=== PATIENT | female | born 1950 | race Caucasian/White ===

== ENCOUNTER 2018-07-31 00:30 | Outpatient (CLI) | payer MEDICARE, BC, SELFPAY ==
--- NOTE | 2018-07-31 09:00 | DI.MAMMO_ITS ---
SYMPTOMS/DIAGNOSIS: SCREENING, Z12.31 BILATERAL SCREENING MAMMOGRAM: Mammograms were interpreted according to the usual protocol including computer analysis with CAD system, tomosynthesis and C view imaging. Comparison is made with exams from 2013 through 2017. The breasts are composed of heterogeneously dense fibroglandular tissue, breast density category C. No suspicious masses or suspicious microcalcifications are seen. There has been no significant change. IMPRESSION: Category 1C, negative mammogram. Yearly screening mammography is recommended. [facility] ASSESSMENT OF FINDINGS: Negative. Category 1. Patient will receive a letter notifying them of these results. Bi-RADS category C. The breasts are heterogeneously dense, which may obscure small masses.
== END 2018-07-31 00:50 ==
PROVIDERS: PCP Internal Medicine; Visit Provider Nurse Practitioner Family
DX: Z12.31 Encounter for screening mammogram for malignant neoplasm of breast (principal)
CPT/HCPCS: 77063; 77067

== ENCOUNTER 2018-12-15 13:44 | Outpatient (REF) | payer MEDICARE, BC, SELFPAY | END 2018-12-15 14:04 | LOC: LBN 13:44 | PROVIDERS: PCP Internal Medicine; Visit Provider Nurse Practitioner Family | DX: M54.9 Dorsalgia, unspecified (principal) | CPT/HCPCS: 87086 ==

== ENCOUNTER 2019-04-06 02:01 | Outpatient (CLI) | payer MEDICARE, BC, SELFPAY ==
[2019-04-06 11:21] LABS: Calculated LDL 137 mg/dL; Cholesterol 232 mg/dL (50-200); HDL Cholesterol 86 mg/dL (40-60); Triglyceride 45 mg/dL (30-150)
== END 2019-04-06 02:21 ==
PROVIDERS: PCP Internal Medicine; Visit Provider Naturopath
DX: E78.00 Pure hypercholesterolemia, unspecified (principal)
CPT/HCPCS: 36415; 80061; 83721

== ENCOUNTER 2019-07-23 09:30 | Outpatient (REF) | payer MEDICARE, BC, SELFPAY ==
--- NOTE | 2019-07-23 09:00 | PAPFT_PTH ---
PATIENT: Isabell Carballo LOC: [facility] U#:[id number] AGE/SX: 68/F ROOM: RE07/23/[address]: TONI Piedra : 1950 BED: DIS: 07/23/2019 SPEC #: [id number] RECD: 07/23/19 12:52 STATUS: ED RETito #: [id number] SONY: 07/23/19 09:[address]: Jana Bass DEPT: [facility] Cytology RECD BY: Ivanna Frost ENTERED: 07/23/19 12:53 SP TYPE: PAPFT OTHR DR: Stan Greer Tissues: 1 - CX/ENDOCX FOR PAP SMEARS Procedures: PAP THIN PREP/[facility] Screening Comments: [id number]
== END 2019-07-23 09:50 ==
LOC: LBN 09:30
PROVIDERS: PCP Internal Medicine; Visit Provider Nurse Practitioner Family
DX: Z12.4 Encounter for screening for malignant neoplasm of cervix (principal)
CPT/HCPCS: 88142

== ENCOUNTER 2019-09-10 00:53 | Outpatient (CLI) | payer MEDICARE, BC, SELFPAY ==
--- NOTE | 2019-09-10 10:41 | DI.MAMMO_ITS ---
EXAM: MG MAMMO SCREENING CLINICAL HISTORY: Screening, Z12.39 TECHNIQUE: Bilateral full field digital CC and MLO mammographic images were obtained with 3D tomosyn thesis and utilizing computer aided detection (CAD). COMPARISON: Available for comparison. FINDINGS: Masses/Architectural Distortion: None seen. Microcalcifications: No suspicious pleomorphic-type are seen. Skin Thickening/Nipple Retraction: None. IMPRESSION: 1. No significant interval change with no specific features of malignancy noted. 2. Unless there is more urgent need, screening mammography is recommended, as per [employer] guidelines. ACR BI-RAD Category- 1 Negative Breast Density - Category C - Heterogeneously dense The mammogram demonstrates the patient's breast tissue is dense. Dense breast tissue is very common a nd is not abnormal but dense breast tissue can make it harder to find cancer on a mammogram. Also, de nse breast tissue may increase their breast cancer risk. This information about the result of the [facility] mogram report was provided to the patient to raise their awareness. Use this report when you speak wi th the patient about their risks for breast cancer, which includes their family history. At that time , you may recommend for more screening tests (Ultrasound or MRI) as they might be useful based on the ir risk. A negative radiographic report should not delay biopsy if a dominant or clinically suspicious mass is present. Up to ten percent of cancers are not identified on mammography. A negative report may reinforce clinical impression. Adenosis and dense breasts may obscure an underlying neoplasm. False positive reports average 6 to 10%. Patient will receive a letter notifying them of these results.
== END 2019-09-10 01:13 ==
PROVIDERS: PCP Internal Medicine; Visit Provider Nurse Practitioner Family
DX: Z12.31 Encounter for screening mammogram for malignant neoplasm of breast (principal)
CPT/HCPCS: 77063; 77067

== ENCOUNTER 2020-05-20 10:01 | Outpatient (CLI) | payer MEDICARE, BC, SELFPAY ==
[2020-05-22 05:06] LABS: SARS-CoV-2 RNA Undetected (Undetected); SARS-CoV-2 Specimen Source Nasopharynx
== END 2020-05-20 10:21 ==
PROVIDERS: Nurse Practitioner Family; PCP Internal Medicine; Visit Provider Internal Medicine
DX: Z11.59 Encounter for screening for other viral diseases (principal)
CPT/HCPCS: U0003

== ENCOUNTER 2020-09-18 03:24 | Outpatient (CLI) | payer MEDICARE, BC, SELFPAY ==
--- NOTE | 2020-09-18 10:00 | DI.MAMMO_ITS ---
EXAM: MG MAMMO SCREENING CLINICAL HISTORY: screening. TECHNIQUE: Bilateral full field digital CC and MLO mammographic images were obtained with 3D tomosyn thesis and utilizing computer aided detection (CAD). COMPARISON: Prior mammograms dating back to 2010, the most recent being September 2019. Significant family history. Her mother of metastatic breast cancer at age 39. FINDINGS: Fibroglandular tissue is moderately dense, this decreasing sensitivity mammogram for finding in under lying lesions. Asymmetric densities evident in both breasts appear unchanged from prior studies. There are no new o bvious spiculated masses. No malignant-appearing microcalcification groups evident. No new architec tural distortion nor skin thickening-traction IMPRESSION: Dense bilateral fibroglandular tissue. No obvious radiographic evidence of malignancy. Given the de nsity of the patient's fibroglandular tissue +significant family history open (mother of metasta tic breast cancer at age 39) I recommend screening bilateral ultrasound. BI-RADS Category 0 - Assessment Incomplete: Need additional imaging evaluation Breast Density - Category C - Heterogeneously dense Breast density Category C or D implies that the patient has dense breast tissue. Dense breast tissue can make it harder to find cancer on a mammogram. Dense breast tissue is also associated with an incr eased risk of breast cancer. This information about the result of the mammogram report was provided to the patient to raise their awareness. Use this report when you speak with the patient about their risks for breast cancer, which includes their family history. At that time, you may recommend additional screening tests (Ultrasoun d or MRI) as these tests may add significant information. A negative radiographic report should not delay biopsy if a dominant or clinically suspicious mass is present. Up to ten percent of cancers are not identified on mammography. A negative report may reinforce clinical impression. Adenosis and dense breasts may obscure an underlying neoplasm. False positive reports average 6 to 10%. Patient will receive a letter notifying them of these results.
== END 2020-09-18 03:44 ==
PROVIDERS: PCP Internal Medicine; Visit Provider Nurse Practitioner Family
DX: Z12.31 Encounter for screening mammogram for malignant neoplasm of breast (principal); Z80.3 Family history of malignant neoplasm of breast
CPT/HCPCS: 77063; 77067

== ENCOUNTER 2020-09-26 04:17 | Outpatient (CLI) | payer MEDICARE, BC, SELFPAY ==
--- NOTE | 2020-09-26 | DI.US_ITS ---
EXAM: US BREAST RT COMPLETE and U/S breast LT complete CLINICAL HISTORY: F/U MAMMO, DENSE BREASTS, STRONG FAMILY H/O BREAST CA TECHNIQUE: Ultrasound right and left breasts were performed using standard protocol. COMPARISON: Comparison with prior mammograms. FINDINGS: All 4 quadrants of both breasts were evaluated sonographically including the axilla and retroareolar areas. No cystic or solid masses are seen sonographically. The axilla and retroareolar regions are unremarkable sonographically. IMPRESSION: No sonographically suspicious finding. Yearly mammography is recommended. The findings were discussed with the patient on the date of the e xamination. BI-RADS Category 1 - Negative DATA REPOSITORY:
== END 2020-09-26 04:37 ==
PROVIDERS: PCP Internal Medicine; Visit Provider Nurse Practitioner Family
DX: R92.8 Other abnormal and inconclusive findings on diagnostic imaging of breast (principal); R92.2 Inconclusive mammogram; Z80.3 Family history of malignant neoplasm of breast
CPT/HCPCS: 76642

== ENCOUNTER 2021-09-23 18:21 | Outpatient (REF) | payer MEDICARE, BC, SELFPAY ==
[2021-09-23 21:27] LABS: Anion Gap 9.1 mmol/L (3-11); BUN 17 mg/dL (7-18); CO2 27.9 mmol/L (21.0-32.0); Calcium 9.3 mg/dL (8.5-10.1); Calculated LDL 148 mg/dL (<100); Chloride 105 mmol/L (98-107); Cholesterol 247 mg/dL (<200); Estimated GFR 54.81 (mL/min/1.73m2); Glucose 93 mg/dL (74-106); HDL Cholesterol 87 mg/dL (40-60); Sodium 142 mmol/L (136-145); TSH 0.48 uIU/mL (0.36-3.74); Triglyceride 62 mg/dL (<150)
== END 2021-09-23 18:22 | disposition home or self-care (01) ==
LOC: NCHCN 18:21
PROVIDERS: PCP Internal Medicine; Visit Provider Internal Medicine
DX: R03.0 Elevated blood-pressure reading, without diagnosis of hypertension (principal); Z00.00 Encounter for general adult medical examination without abnormal findings
CPT/HCPCS: 80048; 80061; 84443

== ENCOUNTER 2021-10-12 00:54 | Outpatient (CLI) | payer MEDICARE, BC, SELFPAY ==
--- NOTE | 2021-10-12 11:30 | DI.MAMMO_ITS ---
Exam(s) MAMMO SCREENING EXAM: MAMMO SCREENING CLINICAL HISTORY: screening TECHNIQUE: Mammograms were interpreted according to the usual protocol including computer analysis w [employer] CAD system, tomosynthesis and C-view imaging. COMPARISON: 2011 through 2019 FINDINGS: The breasts are composed of heterogeneously dense fibroglandular densities, Breast Density category C . No suspicious masses or suspicious microcalcifications are seen. No skin thickening or abnormal axillary lymph nodes are seen. There has been no significant change from prior exams. IMPRESSION: BI-RADS Category 1, Negative mammogram. Yearly screening mammography is recommended. Breast Density Category C, heterogeneously Dense. The mammogram demonstrates the patient's breast tissue is dense. Dense breast tissue is very common a nd is not abnormal but dense breast tissue can make it harder to find cancer on a mammogram. Also, de nse breast tissue may increase breast cancer risk. This information about the result of the mammogram report was provided to the patient to raise their awareness. Use this report when you speak with the patient about their risks for breast cancer, which includes their family history. At that time, you may recommend additional screening tests (Ultrasound or MRI) as they might be useful based on their r isk. A negative radiographic report should not delay biopsy if a dominant or clinically suspicious mass is present. Up to ten percent of cancers are not identified on mammography. A negative report may reinforce clinical impression. Adenosis and dense breasts may obscure an underlying neoplasm. False positive reports average 6 to 10%.
== END 2021-10-12 01:14 ==
PROVIDERS: PCP Internal Medicine; Visit Provider Nurse Practitioner Family
DX: Z12.31 Encounter for screening mammogram for malignant neoplasm of breast (principal)
CPT/HCPCS: 77063; 77067

== ENCOUNTER 2022-10-15 01:11 | Outpatient (CLI) | payer MEDICARE, BC, SELFPAY ==
--- NOTE | 2022-10-15 08:00 | DI.MAMMO_ITS ---
Exam(s) MAMMO SCREENING EXAM: MAMMO SCREENING CLINICAL HISTORY: screening,Z12.39 TECHNIQUE: Mammograms were interpreted according to the usual protocol including computer analysis w [employer] CAD system, tomosynthesis and C-view imaging. COMPARISON: 2012 through 2021 FINDINGS: The breasts are composed of heterogeneously dense fibroglandular densities, Breast Density category C . No suspicious masses or suspicious microcalcifications are seen. No skin thickening or abnormal axillary lymph nodes are seen. There has been no significant change from prior exams. IMPRESSION: BI-RADS Category 1, Negative mammogram. Yearly screening mammography is recommended. Breast Density Category C, heterogeneously Dense. The mammogram demonstrates the patient's breast tissue is dense. Dense breast tissue is very common a nd is not abnormal but dense breast tissue can make it harder to find cancer on a mammogram. Also, de nse breast tissue may increase breast cancer risk. This information about the result of the mammogram report was provided to the patient to raise their awareness. Use this report when you speak with the patient about their risks for breast cancer, which includes their family history. At that time, you may recommend additional screening tests (Ultrasound or MRI) as they might be useful based on their r isk. A negative radiographic report should not delay biopsy if a dominant or clinically suspicious mass is present. Up to ten percent of cancers are not identified on mammography. A negative report may reinforce clinical impression. Adenosis and dense breasts may obscure an underlying neoplasm. False positive reports average 6 to 10%.
== END 2022-10-15 01:31 ==
LOC: DI 01:12
PROVIDERS: PCP Internal Medicine; Visit Provider Nurse Practitioner Women's Health
DX: Z12.31 Encounter for screening mammogram for malignant neoplasm of breast (principal)
CPT/HCPCS: 77063; 77067

== ENCOUNTER 2022-12-30 09:32 | Outpatient (CLI) | payer MEDICARE, BC, SELFPAY ==
--- NOTE | 2022-12-30 08:45 | DI.RAD_ITS ---
Exam(s) XR KNEE RT 3V AP,LAT,DIANA EXAM: XR KNEE RT 3V AP,LAT,DIANA CLINICAL HISTORY: R knee pain. TECHNIQUE: 2D digital imaging was performed of the right knee. Three views obtained. AP, lateral an d PA tunnel views were obtained. COMPARISON: No exams were available for comparison FINDINGS: BONES: No acute fracture is present. No bony destructive lesion is seen. There is an enthesophyte at the superior aspect of the patella anteriorly. JOINTS: The knee is normally aligned. There is a small joint effusion. There is mild narrowing of th e medial femoral tibial joint. Periarticular spurring is seen in the medial femoral tibial and caro lofemoral joint. SOFT TISSUE: Normal. IMPRESSION: Mild degenerative changes of the knee. Small joint effusion. DATA REPOSITORY: RADIATION DOSE DELIVERED:
== END 2022-12-30 09:33 | disposition home or self-care (01) ==
LOC: DIORS 09:32
PROVIDERS: PCP Internal Medicine; Referring Provider Internal Medicine; Visit Provider Physician Assistant
DX: M17.11 Unilateral primary osteoarthritis, right knee; M65.331 Trigger finger, right middle finger
CPT/HCPCS: 73562; 99203

== ENCOUNTER → 2023-02-01 10:50 | Outpatient (BNVA) | payer MEDICARE, BC, SELFPAY | PROVIDERS: PCP Internal Medicine; Referring Provider Internal Medicine; Visit Provider Physician Assistant | DX: M65.331 Trigger finger, right middle finger (principal); M17.11 Unilateral primary osteoarthritis, right knee | CPT/HCPCS: 20550; 20610; J1030; J1040 ==

== ENCOUNTER 2023-11-21 11:45 | Outpatient (REF) | payer MEDICARE, BC, SELFPAY ==
--- OUTSIDE RECORDS SUMMARY | 2023-11-21 11:48 | XMS_ITS | Continuity of Care Document ---
Author Name Unknown Organization [facility] Address [address] [place] [address] Care Team Providers Care Community Engagement Leader Name Role Phone Stan Hsu Primary Care Physician [facility] Date[facility] 09/21/23 - 09/21/[address] [address] Encounter Diagnosis Diverticulosis of large intestine without perforation or abscess without bleeding(Final) - Family history of malignant neoplasm of digestive organs(Final) - Discharge Disposition: Home or Self Care Attending Physician: Barak Meraz MD Admitting Physician: Barak Meraz MD Referring Physician: Barak Meraz MD Allergies, Adverse Reactions, Alerts Substance Reaction Severity Status sulfa drugs Hives Moderate Active Assessment and Plan Future Scheduled Tests Laboratory* Surgical Pathology [facility] 09/21/23 Functional Status 09/21/23 ADLs Independent Recent Travel History No recent travel Medications Glucosamine Chondroitin 0 Refill(s) Start Date: 09/19/23 Status: Ordered multivitamin adult, oral tablet 0 Refill(s) Start Date: 09/19/23 Status: Ordered Turmeric 0 Refill(s) Start Date: 09/21/23 Status: Ordered Vital-D 0 Refill(s) Start Date: 09/19/23 Status: Ordered Procedures Procedure Date Related Diagnosis Body Site Status Colonoscopy 09/11/17 Completed section Complete d Vital Signs Most recent to oldest [Reference Range]: 1 2 3 Temperature Temporal Artery [36-38 Deg C] 35.4 Deg C *LOW* (09/21/23 10:40 AM) 36.8 Deg C (09/21/23 8:38 AM) Temperature Temporal Artery (DegF) [97.3-100 Deg F] 95.72 Deg F *LOW* (09/21/23 10:40 AM) Peripheral Pulse Rate [60-100 bpm] 74 bpm (09/21/23 11:30 AM) 61 bpm (09/21/23 11:15 AM) 57 bpm *LOW* (09/21/23 11:10 AM) Heart Rate Monitored [60-100 bpm] 72 bpm (09/21/23 11:30 AM) 61 bpm (09/21/23 11:15 AM) 57 bpm *LOW* (09/21/23 11:10 AM) Respiratory Rate [12-24 br/min] 20 br/min (09/21/23 11:30 AM) 11 br/min *LOW* (09/21/23 11:15 AM) 18 br/min (09/21/23 11:10 AM) Blood Pressure [90-140/60-90 mmHg] 137/105mmHg (09/21/23 11:30 AM) 128/68mmHg (09/21/23 11:15 AM) 122/67mmHg (09/21/23 11:00 AM) Mean Arterial Pressure, Cuff [70-110 mmHg] 116 mmHg *HI* (09/21/23 11:30 AM) 88 mmHg (09/21/23 11:15 AM) 85 mmHg (09/21/23 11:00 AM) Mean Arterial Pressure Cuff 102 mmHg (09/21/23 8:38 AM) Blood Pressure Location Left arm (09/21/23 8:38 AM) Weight 62.2 kg (09/21/23 8:38 AM) Weight Dosing 62.200 kg (09/21/23 8:38 AM) Height 152 cm (09/21/23 8:38 AM) Body Mass Index 26.92 kg/m2 (09/21/23 8:38 AM) Social History Social History Type Response Tobacco Never tobacco user T obacco Use:. Sex Female Hospital Discharge Instructions Patient Education 09/21/2023 10:06:19 ss colonoscopy discharge instructions COLONOSCOPY / SIGMOIDOSCOPY Home Independently, No polyps were seen. The patient has mild diverticulosis. Repeat exam 5 years., Following day: Return to full activity, including work. Diet: Eat and drink normally, unless instructed otherwise. Treatment for common after affects: Mild abdominal pain, bloating, or excessive gas: Rest, eat lightly and use a heating pad. Symptoms to watch for and report to your physician: SEVERE abdominal pain or bloating. Fever within 24 hours after procedure. A large amount of rectal bleeding. (A small amount of blood from the rectum is not serious, especially if hemorrhoids are present.) If you have had a Colonoscopy: Do not attempt to drive a vehicle or operate power equipment of any kind for at least 24 hours after discharge from the hospital. Do not consume alcoholic beverages or other mood-altering drugs on the day of surgery. Mild irritation at needle site: Apply warm, moist pack to area for 20 minutes four times a day for 2-3 days. Call physician if persistent redness and/or drainage at needle site. In the event of any problems after surgery, do not hesitate to contact your doctor, [facility] , or the Emergency Room at [phone]. Discharge instructions * Dorene Oliveira: PERFORM Event Display: Discharge Instructions Authored Date: [id number] BENJI TAMEZ :1950 Age:72 years Sex:Female Visit Date:09/21/2023 Primary Care Physician: Stan Hsu MD Hospital Discharge Instructions We would like to thank you for allowing us to assist you with your healthcare needs. The following includes patient education materials and information regarding your injury/illness. Your Summary Your Care Team Admitting Physician - Barak Meraz MD Attending Physician - Barak Meraz MD Primary Care Physician - Percy ARAUJOStan MD Referring Physician - Kandace HUGO, Barak Ricks MD Discharge Vitals Temperature??(Temporal Artery) 95.7 ??F (35.4 ??C) Heart Rate??(Peripheral) 56 Heart Rate??(Monitored) 56 Respiratory Rate?? 11 Blood Pressure?? 122/67?? Blood Pressure?? 145/87(Sitting)?? Height?? 59.84 in (152 cm) Weight?? 137.15 lb (62.2 kg) BMI?? 26.92 Education Materials COLONOSCOPY / SIGMOIDOSCOPY ? Home Independently, No polyps were seen. The patient has mild diverticulosis. Repeat exam 5 years., ? Following day: Return to full activity, including work. Diet: Eat and drink normally, unless instructed otherwise. ? Treatment for common after affects: Mild abdominal pain, bloating, or excessive gas: Rest, eat lightly and use a heating pad. ? Symptoms to watch for and report to your physician: SEVERE abdominal pain or bloating. ? Fever within 24 hours after procedure. ? A large amount of rectal bleeding. (A small amount of blood from the rectum is not serious, especially if hemorrhoids are present.) ? If you have had a Colonoscopy: Do not attempt to drive a vehicle or operate power equipment of any kind for at least 24 hours after discharge from the hospital. ? Do not consume alcoholic beverages or other mood-altering drugs on the day of surgery. ? Mild irritation at needle site: Apply warm, moist pack to area for 20 minutes four times a day for 2-3 days. ? Call physician if persistent redness and/or drainage at needle site. ? In the event of any problems after surgery, do not hesitate to contact your doctor, [facility] , or the Emergency Room at [phone]. Patient/Vehicle Mechanic Signature Patient Name:BENJI TAMEZ Iraj I have received this information and my questions have been answered. Patient/Vehicle Mechanic Name: Patient/Vehicle Mechanic Signature: Relationship to Patient: Witness Name/Signature: Date: Electronically Signed on: 09/21/2023 11:07 ESTSigned by:MARIEL History and physical note * Barak Meraz MD: PERFORM Event Display: History and Physical Authored Date: [id number] BENJI TAMEZ :1950 Age:72 years Sex:Female Visit Date:09/21/2023 Primary Care Physician: Stan Hsu MD History of Present Illness 72-year-old female??seen for follow-up??colonoscopy.?? Last exam 5 years ago,??her father had coloncancer. ??She is currently asymptomatic. Review of Systems No history of chest pain, pressure, previous CO.?? She had asthma as a child and uses an inhaler??when she downhill skis occasionally.?No current respiratory symptoms.?? No history of rectal bleeding, easy bleeding or bruising. Physical Exam Vitals & Measurements T:??36.8?C ??(Temporal Artery)?? HR:??69??(Peripheral)?? RR:??17?? SpO2:??99%?? HT:??152??cm?? WT:??62.2??kg?? BMI:??26.92?? Pain Score:??0?? O2 Therapy:??Room air?? Skin warm and dry, neck supple without cervical or supraclavicular adenopathy.?? Lungs clear, heartregular without murmurs. ??Abdomen soft nontender. Assessment/Plan Ordered: Dextrose 5% in Lactated Ringers Injection 500 mL, Total Volume (mL): 500, 500 mL, Soln-IV, IV, 30 mL/hr, Start Date: 09/21/23 8:41:00 EST, 62.2 kg, Populate Charting Weight From Order, 1.62, m2 Valium, 2.5 mg = 0.5 mL, IV Push, Soln, every 2 min for 10 times, PRN sedation, First Dose: 09/21/23 9:54:00 EST, Stop Date: Limited # of times, Physician Stop, Routine Valium, 5 mg = 1 mL, IV Push, Soln, every 2 min for 10 times, PRN sedation, First Dose: 09/21/23 9:54:00 EST, Stop Date: Limited # of times, Physician Stop, Routine Valium, 7.5 mg = 1.5 mL, IV Push, Soln, every 2 min for 10 times, PRN sedation, First Dose: 09/21/23 9:54:00 EST, Stop Date: Limited # of times, Physician Stop, Routine Valium, 10 mg = 2 mL, IV Push, Soln, every 2 min for 10 times, PRN sedation, First Dose: 09/21/23 9:54:00 EST, Stop Date: Limited # of times, Physician Stop, Routine fentaNYL, 25 mcg = 0.5 mL, IV Push, Soln, every 2 min for 12 times, PRN sedation, First Dose: 09/21/23 9:54:00 EST, Stop Date: Limited # of times, Physician Stop, Routine fentaNYL, 50 mcg = 1 mL, IV Push, Soln, every 2 min for 12 times, PRN sedation, First Dose: 09/21/23 9:54:00 EST, Stop Date: Limited # of times, Physician Stop, Routine fentaNYL, 75 mcg = 1.5 mL, IV Push, Soln, every 2 min for 12 times, PRN sedation, First Dose: 09/21/23 9:54:00 EST, Stop Date: Limited # of times, Physician Stop, Routine fentaNYL, 100 mcg = 2 mL, IV Push, Soln, every 2 min for 12 times, PRN sedation, First Dose: 09/21/23 9:54:00 EST, Stop Date: Limited # of times, Physician Stop, Routine flumazenil, 0.2 mg = 2 mL, IV Push, Soln, As Directed for 10 times, PRN sedation, Administer over: 15 seconds, First Dose: 09/21/23 9:54:00 EST, Stop Date: Limited # of times, Physician Stop, Routine lidocaine 1% injectable solution, 1 mg 0.1 mL, Intradermal, Soln, As Directed, PRN other (see comment), First Dose: 09/21/23 8:41:00 EST, Routine Versed, 1 mg = 1 mL, IV Push, Soln, every 2 min for 10 times, PRN sedation, First Dose: 09/21/23 9:54:00 EST, Stop Date: Limited # of times, Physician Stop, Routine Versed, 2 mg = 2 mL, IV Push, Soln, every 2 min for 10 times, PRN sedation, First Dose: 09/21/23 9:54:00 EST, Stop Date: Limited # of times, Physician Stop, Routine Versed, 3 mg = 3 mL, IV Push, Soln, every 2 min for 10 times, PRN sedation, First Dose: 09/21/23 9:54:00 EST, Stop Date: Limited # of times, Physician Stop, Routine Versed, 4 mg = 4 mL, IV Push, Soln, every 2 min for 10 times, PRN sedation, First Dose: 09/21/23 9:54:00 EST, Stop Date: Limited # of times, Physician Stop, Routine naloxone, 0.08 mg = 0.2 mL, IV Push, Soln, every 2 min for 10 times, PRN sedation, First Dose: 09/21/23 9:54:00 EST, Stop Date: Limited # of times, Physician Stop, Routine Communication Order, 09/21/23 9:54:00 EST, Nursing to administer and doses via IV push per verbal instruction from MD at bedside immediately prior and during conscious sedation procedure. NPO, 09/21/23 8:41:00 EST, Constant Indicator Obtain Surgical Consent, 09/21/23 8:41:00 EST, see signed consent Oxygen Therapy, Stop date 09/21/23 9:54:00 EST, Simple Mask to maintain SpO2 of 90% or greater, Ivon Ramos Surgical Pathology [facility], AP Specimen, Routine Collect, 09/21/23, Once, Nurse collect, Print Label, Order for future visit Vital Signs, 09/21/23 9:54:00 EST, every 5 min, Every 5 minutes with cardiac and respiratory assessment Proceed with colonoscopy.?? Procedure, indications and risks discussed. ??Consent signed and on thechart. Problem List/Past Medical History Ongoing No qualifying data Historical No qualifying data Procedure/Surgical History ???Colonoscopy (09/12/2017)??? section Medications Inpatient Dextrose 5% in Lactated Ringers Injection 500 mL, 500 mL, IV fentaNYL, 25 mcg= 0.5 mL, IV Push, every 2 min, PRN fentaNYL, 50 mcg= 1 mL, IV Push, every 2 min, PRN fentaNYL, 75 mcg= 1.5 mL, IV Push, every 2 min, PRN fentaNYL, 100 mcg= 2 mL, IV Push, every 2 min, PRN flumazenil, 0.2 mg= 2 mL, IV Push, As Directed, PRN lidocaine 1% injectable solution, 1 mg= 0.1 mL, Intradermal, As Directed, PRN naloxone, 0.08 mg= 0.2 mL, IV Push, every 2 min, PRN Valium, 2.5 mg= 0.5 mL, IV Push, every 2 min, PRN Valium, 5 mg= 1 mL, IV Push, every 2 min, PRN Valium, 7.5 mg= 1.5 mL, IV Push, every 2 min, PRN Valium, 10 mg= 2 mL, IV Push, every 2 min, PRN Versed, 1 mg= 1 mL, IV Push, every 2 min, PRN Versed, 2 mg= 2 mL, IV Push, every 2 min, PRN Versed, 3 mg= 3 mL, IV Push, every 2 min, PRN Versed, 4 mg= 4 mL, IV Push, every 2 min, PRN Home Glucosamine Chondroitin multivitamin adult, oral tablet Turmeric Vital-D Allergies sulfa drugs??(Hives) Social History Alcohol Current, Wine, Daily- Comments: 1 glass of wine Electronic Cigarette/Vaping Electronic Cigarette Use: Never. Substance Use Current, Marijuana, 1-2 times per month Tobacco Never tobacco user Tobacco Use:. Electronically Signed on 09/21/23 10:09 AM Barak Meraz MD Patient Care team information Care Team Personnel Name: Stan Hsu MD Position: Physician Member Role: Primary Care Physician Address: Address: [address] [place] [id number] [place] Care Team Related Persons Name: MAX TAMEZ Address: Home [address] [place] [address], [id number]
[2023-11-21 20:24] LABS: BUN 16 mg/dL (7-18); Calculated LDL 154 mg/dL (<100); Chloride 103 mmol/L (98-107); Cholesterol 261 mg/dL (<200); Estimated GFR 59.49 (mL/min/1.73m2); Glucose 100 mg/dL (74-106); HDL Cholesterol 98 mg/dL (40-60); Sodium 141 mmol/L (136-145); Triglyceride 47 mg/dL (<150)
[2023-11-21 20:28] LABS: TSH 0.59 uIU/mL (0.36-3.74)
[2023-11-22 19:06] LABS: Hepatitis C Ab w Rflx HCV PCR Negative (Negative)
== END 2023-11-21 11:46 | disposition home or self-care (01) ==
LOC: NCHCN 11:45
PROVIDERS: PCP Internal Medicine; Visit Provider Internal Medicine
DX: I10 Essential (primary) hypertension (principal); Z11.59 Encounter for screening for other viral diseases
CPT/HCPCS: 80048; 80061; 86803; 84443

== ENCOUNTER → 2023-11-22 02:28 | Outpatient (CLI) | payer MEDICARE, BC, SELFPAY ==
--- NOTE | 2023-11-22 07:15 | DI.MAMMO_ITS ---
Exam(s) MAMMO SCREENING EXAM: MAMMO SCREENING CLINICAL HISTORY: screening,z12.31 TECHNIQUE: Bilateral full field digital CC and MLO mammographic images were obtained with 3D tomosyn thesis and utilizing computer aided detection (CAD). COMPARISON: Available for comparison. FINDINGS: Masses/Architectural Distortion: None seen. Microcalcifications: No suspicious pleomorphic-type are seen. Skin Thickening/Nipple Retraction: None. IMPRESSION: 1. No significant interval change with no specific features of malignancy noted. 2. Unless there is more urgent need, screening mammography is recommended, as per [employer] guidelines. BI-RADS Category 1 - Negative Breast Density - Category C - Heterogeneously dense Breast density category C or D implies that the patient has dense breast tissue. Dense breast tissue is very common and is not abnormal but dense breast tissue can make it harder to find cancer on a ma mmogram. Also, dense breast tissue may increase their breast cancer risk. This information about the result of the mammogram report was provided to the patient to raise their awareness. Use this report when you speak with the patient about their risks for breast cancer, which includes their family hist ory. At that time, you may recommend for more screening tests (Ultrasound or MRI) as they might be us eful based on their risk. A negative radiographic report should not delay biopsy if a dominant or clinically suspicious mass is present. Up to ten percent of cancers are not identified on mammography. A negative report may reinforce clinical impression. Adenosis and dense breasts may obscure an underlying neoplasm. False positive reports average 6 to 10%. Patient will receive a letter notifying them of these results.
== END ==
PROVIDERS: PCP Internal Medicine; Visit Provider Obstetrics & Gynecology
DX: Z12.31 Encounter for screening mammogram for malignant neoplasm of breast (principal)
CPT/HCPCS: 77063; 77067

== ENCOUNTER 2024-12-14 14:51 | Outpatient (REF) | payer MEDICARE, BC, SELFPAY ==
[2024-12-14 19:36] LABS: Anion Gap 2.6 mmol/L (3-11); BUN 17 mg/dL (7-18); CO2 32.4 mmol/L (21.0-32.0); Calcium 9.7 mg/dL (8.5-10.1); Calculated LDL 138 mg/dL (<100); Chloride 108 mmol/L (98-107); Cholesterol 240 mg/dL (<200); Estimated GFR 59.12 (mL/min/1.73m2); Glucose 96 mg/dL (74-106); HDL Cholesterol 90 mg/dL (>or=50); Sodium 143 mmol/L (136-145); TSH 0.64 uIU/mL (0.36-3.74); Triglyceride 60 mg/dL (<150)
[2024-12-16 10:29] LABS: HIV-1/2 Ag & Ab Screen Negative (Negative)
== END 2024-12-14 14:52 | disposition home or self-care (01) ==
LOC: NCHCN 14:51
PROVIDERS: PCP Internal Medicine; Visit Provider Internal Medicine
DX: I10 Essential (primary) hypertension (principal); E78.5 Hyperlipidemia, unspecified; Z11.4 Encounter for screening for human immunodeficiency virus [HIV]
CPT/HCPCS: 80048; 80061; 87389; 84443

== ENCOUNTER 2024-12-21 00:03 | Outpatient (CLI) | payer MEDICARE, BC, SELFPAY ==
--- NOTE | 2024-12-21 11:45 | DI.MAMMO_ITS ---
Exam(s) MAMMO SCREENING EXAM: MAMMO SCREENING CLINICAL HISTORY: screening TECHNIQUE: Bilateral full field digital CC and MLO mammographic images were obtained with 3D tomosyn thesis and utilizing computer aided detection (CAD). COMPARISON: Available for comparison. FINDINGS: Masses/Architectural Distortion: Fibronodular densities are seen throughout both breasts. No suspici ous nodules are present. No areas of architectural distortion are seen. Microcalcifications: No suspicious pleomorphic-type are seen. Skin Thickening/Nipple Retraction: None. IMPRESSION: 1. No significant interval change with no specific features of malignancy noted. 2. Unless there is more urgent need, screening mammography is recommended, as per [employer] guidelines. BI-RADS Category 1 - Negative Breast Density - Category C - Heterogeneously dense Breast density category C or D implies that the patient has dense breast tissue. Dense breast tissue is very common and is not abnormal but dense breast tissue can make it harder to find cancer on a ma mmogram. Also, dense breast tissue may increase their breast cancer risk. This information about the result of the mammogram report was provided to the patient to raise their awareness. Use this report when you speak with the patient about their risks for breast cancer, which includes their family hist ory. At that time, you may recommend for more screening tests (Ultrasound or MRI) as they might be us eful based on their risk. A negative radiographic report should not delay biopsy if a dominant or clinically suspicious mass is present. Up to ten percent of cancers are not identified on mammography. A negative report may reinforce clinical impression. Adenosis and dense breasts may obscure an underlying neoplasm. False positive reports average 6 to 10%. Patient will receive a letter notifying them of these results.
== END 2024-12-21 00:23 ==
LOC: DI 00:03
PROVIDERS: PCP Internal Medicine; Visit Provider Obstetrics & Gynecology
DX: Z12.31 Encounter for screening mammogram for malignant neoplasm of breast (principal); R92.333 Mammographic heterogeneous density, bilateral breasts
CPT/HCPCS: 77063; 77067